=== PATIENT | female | born 1945 | race Hispanic/Latino ===

== ENCOUNTER 2016-09-25 09:00 | Day surgery (SDC) | payer MEDICARE, OTHER ==
[~2016-09-25] VITALS: Ht 160 cm; Wt 88.5 kg
[~2016-09-25 09:00] MED LIST: 0.9% Sodium Chloride 1,000 ML IV PRN; ACET325T51 PO; ASPI-973 PO; ATEN100T PO; ATOR20TA PO; CALC600T12 PO; CHOL100043 PO; CLON0.2T PO; FLUO40CA PO; LEVO75TA4 PO; LORA0.5T PO; LOSA100T29 PO; MULT1CAP60 PO; NITR100C PO; OMEP40CA36 PO; RANI300T4 PO; Sodium Chloride LOK Flush 10 mL Syringe IV PRN; TOLT4CAP13 PO; VERA240T97 PO; fentaNYL-PF 50 mCg/mL 2 mL Inj IVPUSH PRN
[2016-09-25 09:33] VITALS: BP 150/83; PULSE 54; RESP 16; O2SAT 98
[2016-09-25] MEDS ORDERED: ATEN50TA PO (09:44)
[2016-09-25 11:05] VITALS: BP 126/77; PULSE 58; O2SAT 95
[2016-09-25 11:13] VITALS: BP 129/79; PULSE 57; O2SAT 97
[2016-09-25 11:22] VITALS: BP 137/87; PULSE 57; O2SAT 98
--- NOTE | 2016-09-25 11:24 | ENDO ---
[address] [address] ENDOSCOPY PROCEDURE PATIENT: ERICA LINARES : 1945 MR#: [id number] ADMIT: 09/25/2016 JOB ID: [id number] DATE: 09/25/2016 PRIMARY PROVIDER: Mustapha Casas MD PROCEDURE: Colonoscopy with hot snare and cold snare polypectomy. INDICATIONS: A 70-year-old female with a personal history of adenomatous colon returning for surveillance. EQUIPMENT: [employer]. SEDATION: 1. Versed 6 mg. 2. Fentanyl 125 mcg. COMPLICATIONS: None identified. BOWEL PREPARATION: Fair. PROCEDURE INFO: After the risks and benefits were explained, written and verbal informed consent was obtained. The patient was brought into the endoscopy suite and placed into the left lateral decubitus position. Sedation was achieved as above. Digital rectal examination was accomplished. No significant pathology appreciated. Mild internal and external nonbleeding, non-thrombosed hemorrhoids. The scope was introduced into the rectum and advanced under direct visualization to the level of the cecum as identified by the appendiceal orifice and ileocecal valve. The scope was slowly withdrawn to carefully examine the mucosa for any defects or lesions. Multiple direct views were made through the dentate line for exclusion of pathology. The colon was decompressed. The scope removed from the patient who tolerated the procedure well. FINDINGS: In the ascending colon there was an approximately 7 mm sessile polyp removed with hot snare. In the rectosigmoid region there were two other sessile polyps also removed with hot and cold snare. The small polyp was about 5 mm, the larger was perhaps 6 mm. There was some diverticulosis in the right colon, moderately tortuous navigation through the sigmoid region. Moderate internal hemorrhoids with hypertrophied anal papillae noted. Through the twisty regions in the sigmoid there were some scattered subepithelial erythema consistent with prep induced artifact. No suggestion of any underlying chronic inflammation. ENDOSCOPIC DIAGNOSES: 1. Colon polyps. 2. Diverticulosis. 3. Hemorrhoids. RECOMMENDATIONS: 1. Await histopathology. 2. Repeat colonoscopy in three years' time.
--- NOTE | 2016-09-26 16:06 | PATH ---
SURGICAL PATHOLOGY Attending Physician:Jeanette Edmonds CASE STATUS: Signed Out PATIENT NAME: ERICA LINARES PID: [id number] : 1945 DATE COLLECTED:09/25/2016 00:00 SPECIMEN: 1: Colon, Polyp 2: Colon, Polyp CLINICAL HISTORY: 1). ASCENDING COLON POLYP 2). RECTAL/SIGMOID POLYP FINAL DIAGNOSIS: 1. Ascending Colon, Polyp, Biopsy: Portions of tubular adenoma x3; negative for high-grade dysplasia. Superficial portion of colorectal mucosa x1 with no diagnostic abnormality. 2. Rectosigmoid, Polyp, Biopsy: Portions of tubular adenoma x3; negative for high-grade dysplasia. ICD10: K63.5 GROSS DESCRIPTION: 1. Received in formalin, labeled with the patient's name and "ascending colon polyp" consists of four beige-la soft tissue fragments ranging in measurement from 0.2 x 0.2 x 0.1 cm to 0.3 x 0.3 x 0.2 cm and entirely submitted in cassette 1A. 2. Received in formalin, labeled with the patient's name and "rectal sigmoid polyp" consists of three beige-la soft tissue fragments ranging in measurement from 0.2 x 0.2 x 0.1 cm to 0.5 x 0.2 x 0.2 cm and entirely submitted in cassette 2A. (INOCENTE:[id number]) ICD-9 CODES: CPT CODES: 1: 09770 2: 08331 Electronically Signed Out By Samantha Arreola MD [facility] Samantha Arreola MD [facility], [address], [place] [address] Technical component performed at [facility], [address], [place], [address]
== END 2016-09-25 23:59 | disposition home or self-care (01) ==
LOC: END 09:00
PROVIDERS: ATTEND Internal Medicine Gastroenterology
DX: Z12.11 Encounter for screening for malignant neoplasm of colon (principal); Z86.010 Personal history of colon polyps; D12.2 Benign neoplasm of ascending colon; D12.7 Benign neoplasm of rectosigmoid junction; K64.8 Other hemorrhoids; K57.30 Diverticulosis of large intestine without perforation or abscess without bleeding; I10 Essential (primary) hypertension; E03.9 Hypothyroidism, unspecified; E78.5 Hyperlipidemia, unspecified; F41.8 Other specified anxiety disorders; K21.9 Gastro-esophageal reflux disease without esophagitis; Z79.82 Long term (current) use of aspirin
CPT/HCPCS: 45385; 99153; G0500; J2250; J3010; J7030